=== PATIENT | female | born 2000 | race Caucasian/White ===

== ENCOUNTER → 2021-10-20 | Outpatient (CLI) | payer OTHER ==
[2021-10-20] VITALS (19 sets, daily range): BP systolic 87–130; BP diastolic 44–91
[~2021-10-20] MED LIST: AVIANE1 EACH PO; BENZACLIN GEL25 GM TOP; ZYRTEC10 M5 PO
--- NOTE | 2021-10-21 13:32 | PROC ---
[address] [address] PROCEDURE REPORT Name: PAMELA IDNERO Room: [facility].#: [id number] Admission: 10/20/21 Attend Phys: Kei Thompson MD, F Discharge: Date of : 01 Report #: [id number] THIS REPORT FOR: cc: Priya Dee Jacqueline D. FNP Blick, David R. MD [facility] ~ cc: Priya Dee NP DATE OF PROCEDURE: 10/20/2021 TYPE OF PROCEDURE: Tilt table test. INDICATIONS: Tilt table test was requested in this patient with a history of syncope. DESCRIPTION OF PROCEDURE: The patient was placed in the supine position and resting heart rate and blood pressure was obtained. ECG monitoring was performed throughout the procedure. The patient was then placed in the supine position at 70 degrees for 20 minutes. After 20 minutes, the patient was given nitroglycerin 0.4 mg sublingually. RESULTS: The patient had a pretest heart rate of 87, blood pressure 108/75. The patient was then placed in the 70 degrees head upright position. At this time, the heart rate was 92, blood pressure 114/84 and the patient was without complaints. The patient was then left in the head upright position for 20 minutes. After 10 minutes, the patient had a blood pressure 110/78 and a heart rate of 132. The patient did complain of being lightheaded. After 20 minutes, the blood pressure 122/86 with a heart rate of 100. The patient remained in sinus tachycardia. The patient was given nitroglycerin 0.4 mg sublingually. After 5 more minutes, the patient complained of feeling warm and had a heart rate of 142 in a sinus tachycardia with a blood pressure 110/60. The patient complained to being short of breath. She then lost consciousness 5 minutes after receiving nitroglycerin, at which time, her heart rate is 148 with a blood pressure 88/40. The patient was placed back into the supine position and regained consciousness. At this time, the patient had a blood pressure of 86/44 and a heart rate of 115. After recovery, the patient had a heart rate of 110/74 and a pulse of 70. IMPRESSION: Evidence of inappropriate sinus tachycardia with patient developed significant sinus tachycardia while in the upright position at 70 degrees after receiving nitroglycerin 0.4 mg sublingually. The patient did develop hypotension after receiving nitroglycerin 0.4 [place] [address] PROCEDURE REPORT Name: PAMELA DINERO Room: [facility]#: [id number] Admission: 10/20/21 Attend Phys: Kei Thompson MD, F Discharge: Date of : 01 Report #: [id number] The patient did have a vasodepressor response to nitroglycerin, but there was no negative chronotropic response. <ELECTRONICALLY SIGNED> By: Kei Thompson MD, FACC 10/21/21 [id number] Dalia Thompson MD, FAC /nt
== END | disposition home or self-care (01) ==
LOC: M.CL 09:04
PROVIDERS: ATTEND Internal Medicine Cardiovascular Disease
DX: R55 Syncope and collapse (principal); R00.0 Tachycardia, unspecified; Z79.899 Other long term (current) drug therapy